=== PATIENT | male | born 1980 | race Caucasian/White ===

== ENCOUNTER 2019-07-20 16:54 | Emergency (ER) | payer SELFPAY ==
[~2019-07-20] VITALS: Ht 177.8 cm; Wt 81.6 kg
[2019-07-20 18:11] LABS: BASO % 0.6 % (0.0-1.0); EOS % 0.8 % (1.0-4.0); HEMATOCRIT 37.6 % (42.0-52.0); HEMOGLOBIN 13.2 g/dl (14.0-18.0); LYMPH # 0.8 10*3/uL (1.3-4.4); LYMPH % 16.8 % (27.0-41.0); MEAN CELL VOLUME 87.6 fl (80.0-94.0); MEAN CORPUSCULAR HGB 30.8 pg (27.0-31.0); MEAN CORPUSCULAR HGB CONC 35.1 g/dl (33.0-37.0); MONO # 0.8 10*3/uL (0.1-1.0); MONO % 16.6 % (3.0-9.0); NEUT # 3.1 10*3/uL (2.3-7.9); PLATELET COUNT AUTOMATED 263 10*3/uL (130-400); RED BLOOD COUNT 4.29 10*6/uL (4.50-5.90); WHITE BLOOD COUNT 4.8 10*3/uL (4.8-10.8)
[2019-07-20 18:31] LABS: ALBUMIN 3.6 gm/dl (3.1-4.5); ALKALINE PHOSPHATASE 42 U/L (45-117); BUN 13 mg/dl (7-24); CHLORIDE 109 mmol/L (98-107); CREATININE 1.41 mg/dL (0.70-1.30); POTASSIUM 3.6 mmol/L (3.5-5.1); SGOT/AST 26 IU/L (3-35); SGPT/ALT 39 U/L (12-78); SODIUM 138 mmol/L (136-145); TOTAL PROTEIN 6.2 gm/dL (6.4-8.2)
[2019-07-20 18:34] LABS: TROPONIN I < 0.015 ng/ml (<0.045)
== END 2019-07-20 20:12 | disposition home or self-care (01) ==
LOC: ED 16:54
PROVIDERS: Nurse Practitioner
DX: E86.0 Dehydration (principal); R05 Cough; R11.0 Nausea; R19.7 Diarrhea, unspecified; R10.9 Unspecified abdominal pain

== ENCOUNTER 2020-01-08 08:44 | Emergency (ER) | payer OTHER ==
[~2020-01-08] VITALS: Ht 177.8 cm; Wt 82.6 kg
[2020-01-08] MEDS ORDERED: VENT7GM INH (09:16)
[2020-01-08] MEDS ORDERED: CEFDINIR300 MG PO (11:20)
== END 2020-01-08 11:30 | disposition home or self-care (01) ==
LOC: ED 08:44
DX: H66.92 Otitis media, unspecified, left ear (principal); J45.909 Unspecified asthma, uncomplicated; Z79.899 Other long term (current) drug therapy

== ENCOUNTER 2020-05-18 09:01 | Emergency (ER) | payer OTHER ==
[~2020-05-18] VITALS: Ht 177.8 cm; Wt 82.6 kg
[~2020-05-18 09:01] MED LIST: CEFDINIR300 MG PO; VENT7GM INH
[2020-05-18] MEDS ORDERED: PREDNISONE20 M1 PO (10:04)
[2020-05-18] MEDS ORDERED: PROVENTIL HFA6.7 GM INH (10:04)
== END 2020-05-18 11:08 | disposition home or self-care (01) ==
LOC: ED 09:01
DX: R05 Cough (principal); J02.9 Acute pharyngitis, unspecified; R09.89 Other specified symptoms and signs involving the circulatory and respiratory systems; Z20.828 Contact with and (suspected) exposure to other viral communicable diseases

== ENCOUNTER 2020-07-01 12:28 | Emergency (ER) | payer BC ==
[~2020-07-01] VITALS: Wt 82.6 kg
[~2020-07-01 12:28] MED LIST changes: +PREDNISONE20 M1 PO; +PROVENTIL HFA6.7 GM INH
[2020-07-01 15:50] LABS: BASO % 0.6 % (0.0-1.0); EOS # 0.2 10*3/uL (0.0-0.4); EOS % 2.4 % (1.0-4.0); HEMATOCRIT 40.8 % (42.0-52.0); LYMPH % 32.4 % (27.0-41.0); MEAN CELL VOLUME 87.2 fl (80.0-94.0); MEAN CORPUSCULAR HGB 29.5 pg (27.0-31.0); MEAN CORPUSCULAR HGB CONC 33.8 g/dl (33.0-37.0); MEAN PLATELET VOLUME 9.5 fl (9.6-12.3); MONO # 0.6 10*3/uL (0.1-1.0); MONO % 9.5 % (3.0-9.0); NEUT # 3.5 10*3/uL (2.3-7.9); NEUT % 54.9 % (47.0-73.0); PLATELET COUNT AUTOMATED 342 10*3/uL (130-400); RED BLOOD COUNT 4.68 10*6/uL (4.50-5.90); RED CELL DISTRI WIDTH 12.3 % (0-14.5); WHITE BLOOD COUNT 6.3 10*3/uL (4.8-10.8)
[2020-07-01 16:02] LABS: BUN 17 mg/dl (7-24); CHLORIDE 108 mmol/L (98-107); CREATININE 0.98 mg/dL (0.70-1.30); POTASSIUM 3.7 mmol/L (3.5-5.1); SODIUM 140 mmol/L (136-145)
[2020-07-01 16:03] LABS: ACT PARTIAL THROMBO TIME 25.4 SECONDS (20.0-32.1); INTERNATIONAL NORM RATIO 0.9 (2.0-3.5)
== END 2020-07-01 16:56 | disposition short-term general hospital (02) ==
LOC: ED 12:28
PROVIDERS: Emergency Medicine
DX: M54.5 Low back pain (principal); R20.0 Anesthesia of skin; Z79.899 Other long term (current) drug therapy

== ENCOUNTER 2020-10-12 18:24 | Emergency (ER) | payer BC ==
[~2020-10-12] VITALS: Ht 177.8 cm; Wt 84.4 kg
[2020-10-12] MEDS ORDERED: CYCLOBENZAPRINE10 MG PO ×2 (22:02→22:08)
[2020-10-12] MEDS ORDERED: PREDNISONE20 M1 PO ×2 (22:02→22:08)
== END 2020-10-12 22:14 | disposition home or self-care (01) ==
LOC: ED 18:24
DX: G54.4 Lumbosacral root disorders, not elsewhere classified (principal); Z79.899 Other long term (current) drug therapy

== ENCOUNTER 2021-01-04 09:29 | Emergency (ER) | payer BC ==
[~2021-01-04] VITALS: Ht 177.8 cm; Wt 82.6 kg
[~2021-01-04 09:29] MED LIST changes: +CYCLOBENZAPRINE10 MG PO
[2021-01-04] MEDS ORDERED: DOXYCYCLINE100 MG PO (10:07)
== END 2021-01-04 10:57 | disposition home or self-care (01) ==
LOC: ED 09:29
DX: L03.116 Cellulitis of left lower limb (principal); Z79.899 Other long term (current) drug therapy

== ENCOUNTER 2021-03-02 08:01 | Emergency (ER) | payer SELFPAY ==
[~2021-03-02] VITALS: Ht 177.8 cm; Wt 87.1 kg
[~2021-03-02 08:01] MED LIST changes: +DOXYCYCLINE100 MG PO
[2021-03-02] MEDS ORDERED: AMOXICILLIN500 M2 PO (09:17)
== END 2021-03-02 09:20 | disposition home or self-care (01) ==
LOC: ED 08:01
DX: J02.0 Streptococcal pharyngitis (principal); Z20.822 Contact with and (suspected) exposure to COVID-19

== ENCOUNTER 2021-07-09 19:22 | Emergency (ER) | payer SELFPAY ==
[~2021-07-09] VITALS: Ht 177.8 cm; Wt 84.4 kg
[~2021-07-09 19:22] MED LIST changes: +AMOXICILLIN500 M2 PO
[2021-07-09] MEDS ORDERED: NAPROXEN250 MG PO (20:26)
== END 2021-07-09 20:48 | disposition home or self-care (01) ==
LOC: ED 19:22
DX: M70.22 Olecranon bursitis, left elbow (principal); Y93.89 Activity, other specified

== ENCOUNTER 2022-11-03 15:16 | Emergency (ER) | payer BC ==
[~2022-11-03] VITALS: Ht 177.8 cm; Wt 70.8 kg
[~2022-11-03 15:16] MED LIST changes: +NAPROXEN250 MG PO
[2022-11-03] MEDS ORDERED: LAMOTRIGINE25 M1 PO (15:28)
[2022-11-03] MEDS ORDERED: FLUOXETINE HCL40 MG PO (15:28)
[2022-11-03] MEDS ORDERED: MIRTAZAPINE15 M2 PO (15:29)
[2022-11-03 16:12] LABS: BASO # 0.1 10*3/uL (0.0-0.1); BASO % 0.7 % (0.0-1.0); EOS % 0.6 % (1.0-4.0); HEMATOCRIT 37.3 % (42.0-52.0); LYMPH % 28.1 % (27.0-41.0); MEAN CELL VOLUME 88.8 fl (80.0-94.0); MEAN CORPUSCULAR HGB CONC 34.9 g/dl (33.0-37.0); MEAN PLATELET VOLUME 9.6 fl (9.6-12.3); MONO # 0.7 10*3/uL (0.1-1.0); MONO % 9.4 % (3.0-9.0); NEUT # 4.4 10*3/uL (2.3-7.9); NEUT % 60.9 % (47.0-73.0); PLATELET COUNT AUTOMATED 352 10*3/uL (130-400); RED CELL DISTRI WIDTH 12.3 % (0-14.5); WHITE BLOOD COUNT 7.2 10*3/uL (4.8-10.8)
[2022-11-03 16:25] LABS: BILIRUBIN Negative (Negative); BLOOD Negative (Negative); CLARITY Clear (Clear); COLOR Yellow (Yellow); GLUCOSE Negative (Negative); KETONE 1+ (Negative); LEUKO ESTERASE Negative (Negative); NITRITE Negative (Negative); PH 5.5 (4.5-8.0); SPECIFIC GRAVITY 1.025 (1.001-1.030); UROBILINOGEN 0.2 E.U./dl (0.0-1.0)
[2022-11-03 16:36] LABS: ALKALINE PHOSPHATASE 46 U/L (46-116); BUN 23 mg/dl (9-23); CHLORIDE 104 mmol/L (98-107); POTASSIUM 3.6 mmol/L (3.4-5.1); SGPT/ALT 41 U/L (10-49); TOTAL PROTEIN 6.8 gm/dL (6.0-8.0)
[2022-11-03 16:38] LABS: BACTERIA 1+; EPITHELIAL CELLS 0-2; RBC 0-2 rbc/hpf (0-2)
== END 2022-11-03 17:24 | disposition home or self-care (01) ==
LOC: ED 15:16
PROVIDERS: Nurse Practitioner Family
DX: R30.0 Dysuria (principal); J45.909 Unspecified asthma, uncomplicated

== ENCOUNTER 2023-02-23 23:42 | Emergency (ER) | payer BC ==
[~2023-02-23] VITALS: Ht 177.8 cm; Wt 72.6 kg
[~2023-02-23 23:42] MED LIST changes: +FLUOXETINE HCL40 MG PO; +LAMOTRIGINE25 M1 PO; +MIRTAZAPINE15 M2 PO
== END 2023-02-24 01:26 | disposition home or self-care (01) ==
LOC: ED 23:42
DX: S61.211A Laceration without foreign body of left index finger without damage to nail, initial encounter (principal); J45.909 Unspecified asthma, uncomplicated; W26.0XXA Contact with knife, initial encounter; Y93.89 Activity, other specified; Y92.89 Other specified places as the place of occurrence of the external cause; Y99.8 Other external cause status

== ENCOUNTER 2023-11-23 20:43 | Emergency (ER) | payer BC ==
[~2023-11-23] VITALS: Ht 175.2 cm; Wt 76.2 kg
== END 2023-11-23 22:46 | disposition home or self-care (01) ==
LOC: ED 20:43
DX: S93.102A Unspecified subluxation of left toe(s), initial encounter (principal); J45.909 Unspecified asthma, uncomplicated; W22.03XA Walked into furniture, initial encounter; Y93.01 Activity, walking, marching and hiking; Y92.89 Other specified places as the place of occurrence of the external cause; Y99.8 Other external cause status

== ENCOUNTER 2024-02-12 15:22 | Emergency (ER) | payer BC ==
[~2024-02-12] VITALS: Ht 177.8 cm; Wt 74.8 kg
[2024-02-12] MEDS ORDERED: MORPHINE Sulfate 2 MG/ML SYR IM ONE (15:45)
[2024-02-12] MEDS ORDERED: Lidocaine Hydrochloride 30 ML VIAL IJ ONE (15:45)
[2024-02-12] MEDS ORDERED: Tdap Vaccine 0.5 ML SYR (Adult Vaccine) IM ONE (15:45)
[2024-02-12] MEDS ORDERED: CEPHALEXIN500 M1 PO (17:22)
== END 2024-02-12 17:36 | disposition home or self-care (01) ==
LOC: ED 15:22
DX: S61.412A Laceration without foreign body of left hand, initial encounter (principal); J45.909 Unspecified asthma, uncomplicated; Z87.891 Personal history of nicotine dependence; X58.XXXA Exposure to other specified factors, initial encounter; Y93.89 Activity, other specified; Y92.89 Other specified places as the place of occurrence of the external cause; Y99.8 Other external cause status